=== PATIENT | female | born 1950 | race Caucasian/White ===

== ENCOUNTER 2021-11-12 10:22 | Outpatient (CLI) | payer MEDICARE, SELFPAY ==
--- NOTE | ~2021-11-12 | XR_ITS ---
XR knee RT 3V 11/12/2021 10:53 Indication: Knee pain Procedure: 3 views right knee Comparison: No prior studies for comparison. Findings: There is anatomic alignment. No significant joint space narrowing. No fracture, subluxation or dislocation. No joint effusion. No foreign bodies. Impression: 1: No significant bone or joint abnormality. Reviewed, dictated and finalized at location A. Impression: 1: No significant bone or joint abnormality.
--- NOTE | ~2021-11-12 | XR_ITS ---
XR knee LT 3V 11/12/2021 10:52 Indication: Left knee pain Procedure: 3 views left knee Comparison: 12/16/2011 Findings: No fracture, subluxation or dislocation. There is anatomic alignment. No significant joint effusion. No joint effusion. No foreign body. Impression: 1: No significant bone or joint abnormality. Reviewed, dictated and finalized at location A. Impression: 1: No significant bone or joint abnormality.
== END 2021-11-12 10:23 | disposition home or self-care (01) ==
PROVIDERS: PCP Internal Medicine; Visit Provider Internal Medicine
DX: M25.562 Pain in left knee (principal); M25.561 Pain in right knee
CPT/HCPCS: 73562

== ENCOUNTER 2022-07-22 08:23 | Emergency (ER) | payer MEDICARE, SELFPAY ==
[2022-07-22 09:03] VITALS: BP 147/65; PULSE 83; RESP 18; TEMP 36.6; O2SAT 100
--- NOTE | 2022-07-22 09:49 | ED.URI ---
HPI - URI/Sore Throat General Chief Complaint: Upper Respiratory Infection Stated Complaint: congestion,headache Time Seen by Provider: 07/22/22 09:49 Source: patient, RN notes reviewed and old records reviewed Mode of arrival: ambulatory Limitations: no limitations History of Present Illness HPI Narrative: 72-year-old female [facility] with burning nose watery eyes since at least last with head congestion with increased symptoms since yesterday. Patient states over the weekend she did feel a little bit better but since yesterday her symptoms have started to increase with headache pain, sinus pressure, yellowish green sinus drainage.Patient has been taking Mucinex for her symptoms.Patient reports no dyspnea or any acute cough,denies any acute fever or body aches,reports home COVID test negative. Patient has had COVID vaccinations and also Flu shot MD elicited complaint: cough and sore throat Pertinent past history: sinusitis Onset (ago): week(s) (greater than 1 week) Pain scale (0-10): 4 Able to tolerate fluids by mouth: Yes Treatments prior to arrival: other (mucinex) Related Data Home Medications Medication Instructions Recorded Confirmed aspirin 81 mg tablet,delayed 81 mg PO DAILY 06/14/19 07/22/22 release (Adult Low Dose Aspirin) calcium carb-vit D3-minerals 600 1 tablet PO DAILY 06/14/19 07/22/22 mg calcium-200 unit tablet (Calcium 600 + Minerals) cholecalciferol (vitamin D3) 50 2,000 unit PO DAILY 06/14/19 07/22/22 mcg (2,000 unit) tablet multivitamin (Daily Multi-Vitamin 1 tablet PO DAILY 10/20/20 07/22/22 tablet) polyethylene glycol 3350 17 gram 17 g PO DAILY 10/20/20 07/22/22 oral powder packet (Miralax) levocetirizine 5 mg tablet (Xyzal) 5 mg PO DAILY 07/22/22 07/22/22 rosuvastatin 5 mg tablet 5 mg PO DAILY 07/22/22 07/22/22 Allergies Allergy/AdvReac Type Severity Reaction Status Date / Time No Known Allergies Allergy Verified 07/22/22 09:07 Review of Systems Review of Systems: CONSTITUTIONAL: Denies malaise, chills, sweats, or fever. EYES: Denies visual changes, redness, or discharge. ENT: Reports rhinorrhea, congestion, sinus pain,no otalgia no sore throat. CARDIOVASCULAR: Denies chest pain, palpitations, or edema. RESPIRATORY: Reports occasional dry cough.? Denies dyspnea. GASTROINTESTINAL: Denies abdominal pain, nausea, vomiting, diarrhea SKIN: Denies rash or itching. MUSCULOSKELETAL: Denies myalgia. NEUROLOGIC: Reports headache. All systems reviewed & are unremarkable except as noted in HPI and below PMFSH Past Medical History Medical History History of stress test Surgical History Surgical History History of section (~1988) History of cholecystectomy (~2012) Family History Family History Father Patient's father is Family history of malignant neoplasm of bone Mother Hypertension Carcinoma of colon Family history of malignant neoplasm of breast in first degree relative Family history of heart disease in male family member before age 55 Other Family history of malignant neoplasm of male breast Social History Social History Smoking packs per day: 1 Smoking cigarettes per day: 20.0 Years smoked: 9 Smoking pack-years: 9.00 Smoking status: Former smoker Tobacco type: cigarettes Second hand tobacco smoke exposure: No Smoking end date: 06/13/84 Alcohol intake: current Alcohol use details: 4-5 per week Substance use: never Substance use type: does not use Lack of Transportation: No Lack of Food: Never True Current Housing: I Have Housing Concerned About Future Housing: No Difficulty Paying Gas/Electric Bills: No Difficulty Paying for Meds: No Currently Unemploye
== END 2022-07-22 10:06 | disposition home or self-care (01) ==
PROVIDERS: Emergency Provider Registered Nurse; PCP Internal Medicine
DX: J01.40 Acute pansinusitis, unspecified (principal); Z87.891 Personal history of nicotine dependence
CPT/HCPCS: 99213; G0463

== ENCOUNTER 2022-10-16 09:40 | Emergency (ER) | payer MEDICARE, SELFPAY ==
--- NOTE | 2022-10-16 09:42 | ED.GENADULT ---
HPI - General Adult General Chief complaint: Upper Respiratory Infection Stated complaint: Congestion,Sore Throat,Loss of Voice Time Seen by Provider: 10/16/22 09:42 Source: patient Mode of arrival: ambulatory Limitations: no limitations History of Present Illness HPI narrative: 72-year-old female patient presents to the [facility] with complaints of cold symptoms for the past 4-5 days. Patient states that she has had congestion, runny nose, cough and at times she coughs up very little green sputum. Denies fevers, body aches or chills. Patient states she did lose her voice yesterday which is pretty common whenever she has sinus issues. Denies any ear pain. Denies chest pain or shortness of breath. Denies any abdominal pain, nausea, vomiting or diarrhea. Patient states she has not tested herself for COVID yet. Patient states she has been taking [id number] Emmanuelle and corcetin for her symptoms. Related Data Home Medications Medication Instructions Recorded Confirmed aspirin 81 mg tablet,delayed 81 mg PO DAILY 06/14/19 10/16/22 release (Adult Low Dose Aspirin) calcium carb-vit D3-minerals 600 1 tablet PO DAILY 06/14/19 10/16/22 mg calcium-200 unit tablet (Calcium 600 + Minerals) cholecalciferol (vitamin D3) 50 2,000 unit PO DAILY 06/14/19 10/16/22 mcg (2,000 unit) tablet multivitamin (Daily Multi-Vitamin 1 tablet PO DAILY 10/20/20 10/16/22 tablet) polyethylene glycol 3350 17 gram 17 g PO DAILY 10/20/20 10/16/22 oral powder packet (Miralax) rosuvastatin 5 mg tablet 5 mg PO DAILY 07/22/22 10/16/22 Allergies Allergy/AdvReac Type Severity Reaction Status Date / Time No Known Allergies Allergy Verified 10/16/22 09:42 Review of Systems Review of Systems: CONSTITUTIONAL: Denies fever, chills, or sweats. EYES: Denies visual changes, redness, or discharge. ENT: Positive rhinorrhea, congestion, denies sore throat, or otalgia. CARDIOVASCULAR: Denies chest pain, palpitations, or edema. RESPIRATORY: positive cough , denies dyspnea. GASTROINTESTINAL: Denies abdominal pain, nausea, vomiting, or diarrhea. GENITOURINARY: Denies dysuria or hematuria. SKIN: Denies rash or itching. MUSCULOSKELETAL: Denies back pain, joint pain, or myalgia. NEUROLOGIC: Denies headache, numbness, or weakness. PSYCHIATRIC: Denies anxiety or depression. [facility] Past Medical History Medical History Carpal tunnel syndrome on both sides Essential (primary) hypertension Hemorrhoids History of stress test Hypovitaminosis D Irritable bowel syndrome Mixed hyperlipidemia Surgical History Surgical History History of section (~1988) History of cholecystectomy (~2012) Family History Family History Father Patient's father is Family history of malignant neoplasm of bone Mother Hypertension Carcinoma of colon Family history of malignant neoplasm of breast in first degree relative Family history of heart disease in male family member before age 55 Other Family history of malignant neoplasm of male breast Social History Social History Smoking packs per day: 1 Smoking cigarettes per day: 20.0 Years smoked: 9 Smoking pack-years: 9.00 Smoking status: Former smoker Tobacco type: cigarettes Second hand tobacco smoke exposure: No Smoking end date: 06/13/84 Alcohol intake: current Drinks per week: 7 Alcohol use details: wine Substance use: never Substance use type: does not use Lack of Transportation: No Lack of Food: Never True Current Housing: I Have Housing Concerned About Future Housing: No Difficulty Paying Gas/Electric Bills: No Difficulty Paying for Meds: No Currently Unemployed: No Education: High School Diploma/GED Difficulty w/ Chil
[2022-10-16 09:49] VITALS: BP 146/60; PULSE 78; RESP 16; TEMP 36.7; O2SAT 100
== END 2022-10-16 10:18 | disposition home or self-care (01) ==
PROVIDERS: Emergency Provider Nurse Practitioner Family; PCP Family Medicine
DX: J06.9 Acute upper respiratory infection, unspecified (principal); J30.2 Other seasonal allergic rhinitis; Z20.822 Contact with and (suspected) exposure to COVID-19; Z79.82 Long term (current) use of aspirin; Z87.891 Personal history of nicotine dependence
CPT/HCPCS: 87426; 99213; C9803; G0463

== ENCOUNTER 2023-09-12 00:53 | Day surgery (SDC) | payer MEDICARE, SELFPAY ==
--- NOTE | 2023-09-09 10:02 | SUR.PREOP ---
Patient called regarding upcoming procedure. Voicemail left regarding appointment times.
[2023-09-12 09:35] VITALS: BP 134/66; PULSE 107; RESP 16; TEMP 36.2; O2SAT 100; BMI 20.7
--- NOTE | 2023-09-12 09:38 | WPDANESEPPF ---
Anes - Initial Pre Proc Eval Procedure: Operation Date: 09/12/23 11:00 Proposed Procedures p Screening Colonoscopy - Gopal Whipple MD Date/Time: 09/12/23 09:38 Surgeon: Gopal Whipple MD Pre Op Diagnosis: neoplasm screening Patient Data Age: 73 Gender: F Height: 1.65 m Weight: 56.6 kg Last Vital Signs Temp 97.2 F L 09/12/23 09:35 Pulse 107 H 09/12/23 09:35 Resp 16 09/12/23 09:35 BP 134/66 09/12/23 09:35 Pulse Ox 100 09/12/23 09:35 O2 Del Method Room Air 09/12/23 09:35 Allergies Allergy/AdvReac Type Severity Reaction Status Date / Time No Known Allergies Allergy Verified 09/12/23 09:34 Home Medications Medication Instructions Recorded Confirmed Type aspirin 81 mg tablet,delayed 81 mg PO DAILY 06/14/19 09/01/23 History release (Adult Low Dose Aspirin) calcium carb-vit D3-minerals 600 1 tablet PO DAILY 06/14/19 09/01/23 History mg calcium-200 unit tablet (Calcium 600 + Minerals) cholecalciferol (vitamin D3) 50 2,000 unit PO DAILY 06/14/19 09/01/23 History mcg (2,000 unit) tablet multivitamin (Daily Multi-Vitamin 1 tablet PO DAILY 10/20/20 09/01/23 History tablet) polyethylene glycol 3350 17 gram 17 g PO DAILY 10/20/20 09/01/23 History oral powder packet (Miralax) fexofenadine 180 mg tablet 180 mg PO DAILY 12/27/22 09/01/23 History (Emmanuelle Allergy) amitriptyline 10 mg tablet 10 mg PO QHS #90 tabs 07/06/23 09/01/23 Rx amlodipine 2.5 mg tablet 2.5 mg PO DAILY #90 tabs 07/06/23 09/01/23 Rx chlorthalidone 25 mg tablet See Rx Instructions .Route 07/06/23 09/01/23 Rx .COMPLEX #90 tabs lisinopril 40 mg tablet 40 mg PO DAILY #90 tabs 07/06/23 09/01/23 Rx rosuvastatin 5 mg tablet 5 mg PO DAILY #30 tabs 07/06/23 09/01/23 Rx Patient hx anesthesia problems: none Family hx anesthesia problems: none Results Review: All pre-operative results and documents have been reviewed as part of the pre-operative evaluation. [facility] Past Medical History Medical History Carpal tunnel syndrome on both sides Essential (primary) hypertension Hemorrhoids History of stress test Hypovitaminosis D Irritable bowel syndrome Mixed hyperlipidemia Surgical History Surgical History History of section (~1988) History of cholecystectomy (~2012) Family History Family History Father Patient's father is Family history of malignant neoplasm of bone Mother Hypertension Carcinoma of colon Family history of malignant neoplasm of breast in first degree relative Family history of heart disease in male family member before age 55 Other Family history of malignant neoplasm of male breast Social History Social History Smoking packs per day: 1 Smoking cigarettes per day: 20.0 Years smoked: 10 Smoking pack-years: 10.00 Smoking status: Former smoker Tobacco type: cigarettes Second hand tobacco smoke exposure: No Smoking end date: 06/13/84 Alcohol intake: current Drinks per week: 5 Alcohol use details: wine Substance use: never Substance use type: does not use Lack of Transportation: No Lack of Food: Never True Current Housing: I Have Housing Concerned About Future Housing: No Difficulty Paying Gas/Electric Bills: No Difficulty Paying for Meds: No Currently Unemployed: No Education: High School Diploma/GED Difficulty w/ Childcare or Family Care: No Living arrangements: with family Spiritual care concerns: No Anes - Eval Final PreProcedure Day of Procedure 09/12/23 09:38 Patient weight: normal Heart: regular rate and rhythm Lungs: clear to auscultation Airway: Mallampati scale class II Neurological: alert and oriented Last oral intake: >/= 8 hours ASA classific
[2023-09-12] MEDS: LACTATED RINGERS 1,000 ML 150 ML IV CONT (09:44)
--- NOTE | 2023-09-12 10:36 | PM.HPGS ---
History of Present Illness History of Present Illness Consent: Risks, benefits, and alternatives have been discussed and questions answered. Patient agrees to proceed with procedure. Chief complaint: neoplasm screening Narrative: Cristela Davis is a 73 year old female here for screening colonoscopy, last one 5 years ago Review of Systems Review of Systems: All systems reviewed & are unremarkable except as noted in HPI and below PMFSH Past Medical History Medical History Carpal tunnel syndrome on both sides Essential (primary) hypertension Hemorrhoids History of stress test Hypovitaminosis D Irritable bowel syndrome Mixed hyperlipidemia Surgical History Surgical History History of section (~1988) History of cholecystectomy (~2012) Family History Family History Father Patient's father is Family history of malignant neoplasm of bone Mother Hypertension Carcinoma of colon Family history of malignant neoplasm of breast in first degree relative Family history of heart disease in male family member before age 55 Other Family history of malignant neoplasm of male breast Social History Social History Smoking packs per day: 1 Smoking cigarettes per day: 20.0 Years smoked: 10 Smoking pack-years: 10.00 Smoking status: Former smoker Tobacco type: cigarettes Second hand tobacco smoke exposure: No Smoking end date: 06/13/84 Alcohol intake: current Drinks per week: 5 Alcohol use details: wine Substance use: never Substance use type: does not use Lack of Transportation: No Lack of Food: Never True Current Housing: I Have Housing Concerned About Future Housing: No Difficulty Paying Gas/Electric Bills: No Difficulty Paying for Meds: No Currently Unemployed: No Education: High School Diploma/GED Difficulty w/ Childcare or Family Care: No Living arrangements: with family Spiritual care concerns: No Meds Home Medications and Allergies Home Medications Medication Instructions Recorded Confirmed Type aspirin 81 mg tablet,delayed 81 mg PO DAILY 06/14/19 09/01/23 History release (Adult Low Dose Aspirin) calcium carb-vit D3-minerals 600 1 tablet PO DAILY 06/14/19 09/01/23 History mg calcium-200 unit tablet (Calcium 600 + Minerals) cholecalciferol (vitamin D3) 50 2,000 unit PO DAILY 06/14/19 09/01/23 History mcg (2,000 unit) tablet multivitamin (Daily Multi-Vitamin 1 tablet PO DAILY 10/20/20 09/01/23 History tablet) polyethylene glycol 3350 17 gram 17 g PO DAILY 10/20/20 09/01/23 History oral powder packet (Miralax) fexofenadine 180 mg tablet 180 mg PO DAILY 12/27/22 09/01/23 History (Emmanuelle Allergy) amitriptyline 10 mg tablet 10 mg PO QHS #90 tabs 07/06/23 09/01/23 Rx amlodipine 2.5 mg tablet 2.5 mg PO DAILY #90 tabs 07/06/23 09/01/23 Rx chlorthalidone 25 mg tablet See Rx Instructions .Route 07/06/23 09/01/23 Rx .COMPLEX #90 tabs lisinopril 40 mg tablet 40 mg PO DAILY #90 tabs 07/06/23 09/01/23 Rx rosuvastatin 5 mg tablet 5 mg PO DAILY #30 tabs 07/06/23 09/01/23 Rx Allergies Allergy/AdvReac Type Severity Reaction Status Date / Time No Known Allergies Allergy Verified 09/12/23 09:34 Vital Signs Vital Signs - 24 hr 09/12/23 09:35 Temperature 97.2 F L Pulse Rate 107 H Respiratory Rate 16 Blood Pressure 134/66 Pulse Oximetry 100 Oxygen Delivery Room Air Exam Const: General: comfortable and no acute distress HENMT: Face/Nose/Sinus: Normal nares present Eyes: General: appearance normal, both eyes and all related structures Neck: Neck: no JVD Resp: Auscultation: clear to auscultation bilaterally Cardio: Rate: regular rate Rhythm: regular rhythm GI: Inspection: non-distended
[2023-09-12 10:57] VITALS: BP 106/51; PULSE 78; RESP 19; O2SAT 100
[2023-09-12 11:07] VITALS: BP 120/56; PULSE 76; RESP 24; O2SAT 100
[2023-09-12 11:17] VITALS: BP 134/65; PULSE 72; RESP 24; O2SAT 100
== END 2023-09-12 11:25 | disposition home or self-care (01) ==
PROVIDERS: PCP Family Medicine; Visit Provider Internal Medicine Gastroenterology
PROC: 0DJD8ZZ Inspection of Lower Intestinal Tract, Via Natural or Artificial Opening Endoscopic (ICD-10-PCS; CPT 45378; principal; 2023-09-12 11:00)
DX: Z12.11 Encounter for screening for malignant neoplasm of colon (principal); K64.8 Other hemorrhoids; K62.89 Other specified diseases of anus and rectum; I10 Essential (primary) hypertension; E55.9 Vitamin D deficiency, unspecified; K58.9 Irritable bowel syndrome, unspecified; E78.2 Mixed hyperlipidemia; Z79.82 Long term (current) use of aspirin; Z90.49 Acquired absence of other specified parts of digestive tract; Z87.891 Personal history of nicotine dependence; Z80.8 Family history of malignant neoplasm of other organs or systems; Z80.0 Family history of malignant neoplasm of digestive organs; Z80.3 Family history of malignant neoplasm of breast; Z82.49 Family history of ischemic heart disease and other diseases of the circulatory system
CPT/HCPCS: G0105; J2001; J2704; J7120

== ENCOUNTER 2025-03-27 12:33 | Outpatient (CLI) | payer MEDICARE, SELFPAY ==
--- OUTSIDE RECORDS SUMMARY | 2025-03-27 14:14 | XMS_ITS | Clinical Summary ---
Author Organization [facility] Medical Office [facility] [address] [place] [address] Care Team Providers Care Switch Tender Name Role Phone Eugenio Ponce MD Primary Care Provider [phone] Encounters Date Type Department Care Team Description 03/07/2025 7:48 AM CDT - 03/07/2025 11:59 [place] [address] Asymptomatic menopausal state Discharge Disposition: Discharge to home or self care 01/09/2025 7:41 AM CDT - 01/09/2025 11:59 PM T Hospital Encounter [place] [id number] Screening mammogram, encounter for Discharge Disposition: Discharge to home or self care from Last 3 Months Medical History Medical History Date Comments Squamous cell carcinoma in situ Family History Medical History Relation Name Comments Breast cancer Father's Sister Breast cancer Mother Relation Name Status Comments Daughter Alive Father's Sister Mother Social History Tobacco Use Types Packs/Day Years Used Date Smoking Tobacco: Never Assessed Comments No Sex and Gender Information Value Date Recorded Sex Assigned at Not on file Legal 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 Gender Identity Not on file Sexual Orientation Not on file Obstetrics History Para Term AB IAB SAB Ectopic Multiple Livin g Live Births 3 1 1 Date Outcome GA Total Labor Labor/2nd/3rd Weight Sex Type Anes PTL Beverly A1 A5 Name Clin Term Plan of Treatment Health Maintenance Due Date Last Done Comments Colon Cancer Screening-Colonoscopy 1950 Depression Screening 1950 Fall Risk Assessment 1950 Hepatitis C Screening 1950 Hepatitis B Screening 1969 Well Visit 65+ 2016 Covid-19 Vaccine (5 - 2024-2 6 season) 2025 09/23/2021, 04/03/2021, 08/23/2020, Additional history exists Influenza Vaccine (#1) 2025 , 04/17/2020, 02/19/2020, Additional history exists Breast Cancer Screening-Mammogram 01/09/2026 01/09/2025, 01/09/2024, 01/03/2023, Additional history exists Osteoporosis Screening-Bone Density Scan 03/07/2027 03/07/2025, 01/26/2023, 11/07/2019, Additional history exists DTaP/Tdap/Td Vaccine (2 - Td or Tdap) 04/17/2030 04/17/2020 Pneumococcal vaccine 65+ Completed 06/19/2019, 05/14 Zoster Vaccine Completed 02/19/2020, 06/19/2019 Procedures Procedure Name Priority Date/Time Associated Diagnosis Comments DEXA AXIAL SKELETON BONE DENSITY 1 OR MORE SITES Schedule Routine, Read Routine (OP Routine) 03/07/2025 8:17 AM CDT Asymptomatic menopausal state SCREENING MAMMOGRAM BILATERAL W ROB Schedule Routine, Read Routine (OP Routine) 01/09/2025 7:58 AM CDT Screening mammogram, encounter for from Last 3 Months Results * Dexa Axial Skeleton Bone Density 1 or 2 Site (03/07/2025 8:17 AM CDT) Anatomical Region Laterality Modality Body N/A Mammography 03/07/2025 8:21 AM CDT Narrative 03/07/2025 8:22 AM CDT EXAM DESCRIPTION: DEXA AXIAL SKELETON BONE DENSITY 1 OR MORE SITES REASON FOR STUDY: 74 y/o year old F with given history of: Post menopausal status. History of taking vitamin-D, hormone replacement therapy and calcium. History of inflammatory bowel disease. Rabbler/Model: Hologic Horizon A (S/N [id number]) Facility LSC value of 0.022 for the AP spine, 0.027 for the femur, and 0.023 for the forearm. CLINICAL INFORMATION: Current height: 64.5 inches Maximum height: 65 inches Weight: 128.5 pounds Risk factors: None COMPARISON: 01/26/2023 FINDINGS: AP LUMBAR SPINE L1-L4: Total BMD is 1.133 g/cm2 T-score is 0.8 This is a 0.6% decrease in comparison to prior exam which is not statistically significant. LEFT HIP: Total BMD is 0.946 g/cm2 T-score is 0.0 This is a 7.8% increase in comparison to prior exam which is statistically significant. Femoral neck BMD is 0.665 g/cm2 T-score is -1.7 FRAX: 10 year risk for a major osteoporotic fracture is 10 %, 10 year risk for a hip fracture is 2.1 % Per National Osteoporosis Foundation guidelines, this patient does not meet the criteria for pharmacological treatment of patients with FRAX 10 year major osteoporotic fracture risk scores of = or greater than 20% or a 10 year probability of a hip fracture = or greater than 3%, to reduce fracture risk. Additional factors such as frequent falls are not represented in FRAX and warrant individual clinical judgment. IMPRESSION: 1. Low bone mass REFERENCE: Bone mineral density: T-Score: Normal (T-score above or = -1.0) Low bone mass (T-score between -1.0 and -2.5) replaces the previously used term osteopenia Osteoporosis (T-score = or below -2.5) Z-Score: Within the expected range for age (Z-score above -2.0) Below the expected range for age (Z-score is -2.0 or below) Please see below follow up recommendations. Medical evaluation for secondary causes of low bone mineral density may be appropriate. FRAX is a World Health Organization validated fracture risk assessment tool that calculates a person's 10 year probability of a major osteoporosis related fracture and hip fracture. According to the National Osteoporosis Foundation guidelines, postmenopausal women and men age 50 or older with low bone mass and a 10 year probability of a major osteoporosis related fracture = or greater than 20% or a 10 year probability of a hip fracture = or greater than 3% should be considered for pharmacological treatment for the prevention of osteoporosis. For further information, including treatment recommendations, please refer to the 2019 ISCD Official Positions (http://www.iscd.org) and the NOF's Clinician's Guide to Prevention and Treatment of Osteoporosis (http://www.nof.org/professionals/clinical-guidelines) THIS IS AN ELECTRONICALLY VERIFIED FINAL REPORT 03/07/2025 8:22 AM - Electronically signed by Desire Kaur M.D. TW: TW Report ID: [id number] Reading Location: [id number] Procedure Note Desire Kaur MD - 03/07/2025 EXAM DESCRIPTION: DEXA AXIAL SKELETON BONE DENSITY 1 OR MORE SITES REASON FOR STUDY: 74 y/o year old F with given history of: Post menopausal status. History of taking vitamin-D, hormone replacementtherapy and calcium. History of inflammatory bowel disease. Rabbler/Model: Kashless A (S/N [id number]) Facility LSC value of 0.022 for the AP spine, 0.027 for the femur, and0.023 for the forearm. CLINICAL INFORMATION: Current height: 64.5 inches Maximum height: 65 inches Weight: 128.5 pounds Risk factors: None COMPARISON: 01/26/2023 FINDINGS: AP LUMBAR SPINE L1-L4: Total BMD is 1.133 g/cm2 T-score is 0.8 This is a 0.6% decrease in comparison to prior exam which is notstatistically significant. LEFT HIP: Total BMD is 0.946 g/cm2 T-score is 0.0 This is a 7.8% increase in comparison to prior exam which is statistically significant. Femoral neck BMD is 0.665 g/cm2 T-score is -1.7 FRAX: 10 year risk for a major osteoporotic fracture is 10 %, 10 year risk for ahip fracture is 2.1 % Per National Osteoporosis Foundation guidelines, this patient does notmeet the criteria for pharmacological treatment of patients with FRAX 10 yearmajor osteoporotic fracture risk scores of = or greater than 20% or a 10 year probability of a hip fracture = or greater than 3%, to reduce fracturerisk. Additional factors such as frequent falls are not represented in FRAX and warrant individual clinical judgment. IMPRESSION: 1. Low bone mass REFERENCE: Bone mineral density: T-Score: Normal (T-score above or = -1.0) Low bone mass (T-score between -1.0 and -2.5) replaces thepreviously used term osteopenia Osteoporosis (T-score = or below -2.5) Z-Score: Within the expected range for age (Z-score above -2.0) Below the expected range for age (Z-score is -2.0 or below) Please see below follow up recommendations. Medical evaluation forsecondary causes of low bone mineral density may be appropriate. FRAX is a World Health Organization validated fracture risk assessmenttool that calculates a person's 10 year probability of a major osteoporosisrelated fracture and hip fracture. According to the National OsteoporosisFoundation guidelines, postmenopausal women and men age 50 or older with low bonemass and a 10 year probability of a major osteoporosis related fracture = or greater than 20% or a 10 year probability of a hip fracture = or greaterthan 3% should be considered for pharmacological treatment for the preventionof osteoporosis. For further information, including treatment recommendations, please referto the 2019 ISCD Official Positions (http://www.iscd.org) and the NOF's Clinician's Guide to Prevention and Treatment of Osteoporosis (http://www.nof.org/professionals/clinical-guidelines) THIS IS AN ELECTRONICALLY VERIFIED FINAL REPORT 03/07/2025 8:22 AM - Electronically signed by Desire Kaur M.D. TW: TW Report ID: [id number] Reading Location: [id number] us Eugenio Ponce MD IMG DXA PROCEDURES Final Result * Screening Mammogram Bilateral W Rob (01/09/2025 7:58 AM CDT) Anatomical Region Laterality Modality Breast Bilateral Mammography Impressions 01/09/2025 8:32 AM CDT Bilateral No evidence of malignancy in either breast. OVERALL BI-RADS FINAL ASSESSMENT: 1 - Negative RECOMMENDATION: Recommend bilateral annual screening mammography. Consider supplemental screening with breast MRI every 1-2 years given extremely dense breast tissue. If breast MRI cannot be performed, consider contrast-enhanced mammography as an alternative. Narrative 01/09/2025 8:32 AM CDT EXAMINATION: Screening Mammogram Bilateral W Rob: 01/09/2025 COMPARISON: Relevant prior studies available at the time of interpretation were reviewed, including the most recent mammogram on: 01/09/2024. TECHNIQUE: Mammography was performed with 2D and digital breast tomosynthesis (DBT) images. CAD was utilized. BREAST PARENCHYMAL COMPOSITION: The breasts are extremely dense, which lowers the sensitivity of mammography. FINDINGS: Bilateral There is no suspicious mass, calcification, or architectural distortion in either breast. us Self Screening Mammogram IMG MAMMO PROCEDURES Fi nal Result from Last 3 Months Insurance MEDICARE [facility] Care Teams Switch Tender Relationship Specialty Start Date End Date Eugenio Ponce MD PCP - General Family Practice 12/28/22
--- OUTSIDE RECORDS SUMMARY | 2025-03-27 14:14 | XMS_ITS | Encounter Summary ---
Author Organization [facility] Address [facility] [facility] [place] [address] Care Team Providers Care Finishing Range Operator Name Role Phone Solitario Tellez MD Primary Care Provider Noe Kim MD Primary Care Provider [phone] Encounter Details Date Type Department Care Team (Late st Contact Info) Description 04/19/[address] [facility] DermPath Lab [address] [place] [address] Malina Ren DO [address] [facility] [address] [place] [address] Social History Tobacco Use Types Packs/Day Years Used Date Smoking Tobacco: Never Assessed Comments Unknown Sex and Gender Information Value Date Recorded Sex Assigned at Not on file Legal Sex Female 3:42 PM CDT Gender Identity Not on file Sexual Orientation Not on file documented as of this encounter Plan of Treatment Not on file documented as of this encounter Procedures Procedure Name Priority Date/Time Associated Diagnosis Comments DERMATOPATHOLOGY Routine 04/18/2019 12:0 0 AM ENVIRONMENTAL PROTECTION INSPECTOR documented in this encounter Results * DERMATOPATHOLOGY (04/18/2019 12:00 AM ENVIRONMENTAL PROTECTION INSPECTOR) Case Report Dermatopathology Report Case: [id number] Authorizing Provider: Malina Ren DO Collected: 04/18/2019 12:00 AM Ordering Location: [facility] DermPath Lab Received: 04/19/2019 08:05 AM Pathologist: Lorri Villalta MD Specimen: Skin, vulva 9 4:05 PM ENVIRONMENTAL PROTECTION INSPECTOR DERMATOPATHOLOGY LABORATORY Final Diagnosis Specimen A. 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 4:05 PM [facility] DERMATOPATHOLOGY LABORATORY Gross Description Specimen A: Received is one formalin filled container labeled with the patient's name and designated vulva. The specimen consists of a shave measuring [id number]. Jar 0. 4:05 PM [facility] DERMATOPATHOLOGY LABORATORY Microscopic Description Specimen A. SKIN, vulva: There is parakeratosis overlying disorderly maturation of keratinocytes with nuclear pleomorphism throughout the full thickness of the epidermis. In addition, there is hypergranulosis with vacuolated granular layer cells. 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 4:05 PM [facility] DERMATOPATHOLOGY LABORATORY Disclaimer An external and internal positive and negative controls are appropriate for the histochemical, immunohistochemical and immunofluorescence stain(s) in this case (if any), except where stated explicitly. The performance characteristics of the stain(s) cited in this report were developed and its performance characteristic determined by the Dermatopathology Laboratory at [facility], directed by Dr. Harriet Villalta. These tests need not be, and therefore are not, approved by the [place] Food and Drug Administration. The tests are used for clinical purposes. Billing Codes Specimen Charges Stain Charges 19223 1 4:05 PM [facility] DERMATOPATHOLOGY LABORATORY Embedded Images 4:05 PM [facility] DERMATOPATHOLOGY LABORATORY Pathology/Cytolog y TISSUE SPECIMEN FROM SKIN / Unknown 04/18/2019 04/19/2019 8:05 AM ENVIRONMENTAL PROTECTION INSPECTOR us Malina Ren DO LAB - PATHOLOGY/CYTOLOGY ORDERABLES Final Result DERMATOPATHOLOGY LABORATORY [facility] - Department of Dermatology [address] [place] [address], [address] [place] [address], [facility] [phone] documented in this encounter Visit Diagnoses Not on filedocumented in this encounter Care Teams Finishing Range Operator Relationship Specialty Start Date End Date Solitario Tellez MD [address] [place] [id number] PCP - General Internal Medicine 02/04/14 05/28/19 Noe Kim MD [address] [place] [address] PCP - General 05/29/19 documented as of this encounter
--- OUTSIDE RECORDS SUMMARY | 2025-03-27 14:14 | XMS_ITS | Clinical Summary ---
Author Organization [facility] [employer] Address [facility] [facility] [place] [address] Care Team Providers Care Associate Professor Of Mathematics Name Role Phone Noe Kim MD Primary Care Provider [phone] Source Comments [facility] [employer],non-owned Affiliates and Associated Physician Practices is amultiple site organization consisting of ambulatory clinics and hospital sitesin [place], [place], [place] and [place]. This disclosure is being madepursuant to the Care Everywhere program and may not contain all information available regarding this patient. Last updated 18.[facility] [employer] Allergies No known active allergies Medications * Be aware that medications may not be up to date on this document. Alwaysverify current medications with the patient. amitriptyline (ELAVIL) 10 MG tablet 05/09/2019 Active chlorthalidone (HYGROTON) 25 MG tablet 05/09/2019 Active lisinopril (PRINIVIL; ZESTRIL) 40 MG tablet 05/09/2019 Active fexofenadine (JOSELIN) 180 MG tablet Take 180 mg by mouth once daily Active aspirin (ASPIRIN) 81 MG tablet Take 81 mg by mouth once daily Active Multiple Vitamins-Mineral s (MULTIVITAMIN ADULT PO) Active calcium carbonate-vitami n D (CALCIUM 600 + D) 600-400 MG-UNIT tablet Take 1 tablet by mouth 2 times daily Active vitamin D, cholecalciferol, 50 MCG (1999 UT) tablet Take 2,000 Units by mouth once daily Active Psyllium (METAMUCIL FIBER PO) Active Polyethylene Glycol 3350 (MIRALAX PO) Active Active Problems No known active problems Family History Medical History Relation Name Comments Asthma Neg Hx CVA Neg Hx Cancer - Breast Neg Hx Cancer - Other Neg Hx Cancer - Skin, Melanoma Neg Hx Cancer - Skin, Non Melanoma Neg Hx Eczema Neg Hx Hemophilia Neg Hx Psoriasis Neg Hx Social History Tobacco Use Types Packs/Day Years Used Date Smoking Tobacco: Former Smokeless Tobacco: Never Alcohol Use Standard Drinks/Week Comments Yes 0 (1 standard drink = 0.6 oz pur e alcohol) Comments Unknown Sex and Gender Information Value Date Recorded Sex Assigned at Not on file Legal Sex Female 3:42 PM CDT Gender Identity Not on file Sexual Orientation Not on file Last Filed Vital Signs Vital Sign Reading Time Taken Comments Blood Pressure 145/79 07/10/2019 9:37 AM QUALITY ASSURANCE/R&D LAB TECHNICIAN Pulse 68 07/10/2019 9:37 AM QUALITY ASSURANCE/R&D LAB TECHNICIAN Temperature - - Respiratory Rate - - Oxygen Saturation 94% 07/10/2019 9:37 AM QUALITY ASSURANCE/R&D LAB TECHNICIAN Inhaled Oxygen Concentration - - Weight 57.2 kg (126 lb) 07/10/2019 7:18 AM QUALITY ASSURANCE/R&D LAB TECHNICIAN Height 165.1 cm (5' 5) 07/10/2019 7:18 AM QUALITY ASSURANCE/R&D LAB TECHNICIAN Body Mass Index 20.97 07/10/2019 7:18 AM QUALITY ASSURANCE/R&D LAB TECHNICIAN Plan of Treatment Health Maintenance Due Date Last Done Comments BONE DENSITY TESTING 1950 COLOGUARD (AGES 45-75) - COL ON CA SCREENING 1950 COLON MONITORING 1950 COLONOSCOPY - COLON CA SCREENING 1950 CT COLONOGRAPHY - COLON CA SCREENING 1950 Colorectal Cancer Screening 1950 FIT - COLON CA SCREENING 1950 FLEX SIG - COLON CA SCREENING 1950 LIPID TESTING 1950 MAMMOGRAM 1950 HEPATITIS C SCREENING 06/19/1969 DTAP/TDAP/TD VACCINES (1 - Tdap) 1970 PNEUMOCOCCAL VACCINE 50+ (1 of 1 - PCV) 2001 ZOSTER VACCINE (1 of 2) 2001 DEPRESSION SCREENING 06/13/2024 COVID-19 VACCINE (1 - 2023-2 5 season) 2025 INFLUENZA VACCINE (#1) 2025 Respiratory Syncytial Virus (RSV) Vaccine Pt: or over 60 yrs (1 - 1-dose 75+ series) 2026 HEPATITIS B VACCINE Aged Out No longe r eligible based on patient's age to complete this topic HIB VACCINE Aged Out No longer eligi ble based on patient's age to complete this topic HPV VACCINE Aged Out No longer eligi ble based on patient's age to complete this topic MENINGOCOCCAL (Group B) VACC INE SHARED DECISION-MAKING Aged Out No longer eligibl e based on patient's age to complete this topic MENINGOCOCCAL GROUPS A/C/Y/W VACCINE Aged Out No longer eligible b ased on patient's age to complete this topic Insurance [employer] Care Teams Associate Professor Of Mathematics Relationship Specialty Start Date End Date Noe Kim MD [address] [place] [address] PCP - General 05/29/19
--- NOTE | 2025-04-09 11:58 | WPDHOLTEREM ---
Holter/Event Monitor Holter/Event Monitor Date of procedure: 03/27/25 Holter/Event Procedure: 3-7 Day Holter Monitor Indications: Palpitations Conclusion: 1. 5 days holter monitor on 03/27/25. 2. Predominant rhythm is sinus rhythm. HR range 47-169 bpm; average HR 65 bpm. HR at 47 bpm was on 03/28/25 at 4:19 am. 3. Ther are occasional premature supraventricular complexes, occasional supraventricular couplets, and occasional supraventricular triplets. There are 496 episodes of supraventricular tachycardia with fastest at 169 bpm and longest lasting 5 beats. 4. There are rare premature ventricular complexes. No ventricular tachycardia. 5. No significant pauses greater than 3 seconds. 6. Patient reports 7 episodes of symptoms of irregular beats which demonstrate 3 episodes with sinus rhythm, HR range 58-73 bpm with PAC's, and 4 episodes in SVT.
== END 2025-03-27 12:34 | disposition home or self-care (01) ==
PROVIDERS: PCP Family Medicine; Visit Provider Family Medicine
DX: R00.2 Palpitations (principal)
CPT/HCPCS: 93242